=== PATIENT | female | born 1975 | race Caucasian/White ===

== ENCOUNTER 2018-12-04 17:37 | Observation (INO) ==
--- NOTE | 2018-12-04 17:54 | Emergency Department Note ---
Back Pain HPI - General Chief Complaint: Back Pain/Injury Stated Complaint: severe back pain after discogram Time Seen by Provider: 12/04/18 17:49 Source: patient Limitations: no limitations - History of Present Illness HPI Narrative: This patient had a discogram on with Dr. Fox. He gave her oxycodone but she is developed quite a bit of pain today in the low back region with a little bit of increased radicular symptoms. She is scheduled to have a back fusion by Dr. Yepez in January. No fever chills nausea or vomiting. - Related Data Allergies Allergy/AdvReac Type Severity Reaction Status Date / Time ciprofloxacin [From Cipro] Allergy Severe Difficulty Verified 12/04/18 17:40 Breathing Review of Systems All systems ED: reviewed and negative except as stated. Past Medical History - Past Medical History Medical history: Reports: no medical history - Social History smoking status: Never smoker Physical Exam Her back on inspection looks normal I do not see any swelling redness erythema cannot even find the puncture site. She has mild tenderness in the area. Limitations: no limitations General appearance: alert Head: atraumatic Neurological: Present: alert Psychiatric: Present: normal affect Skin: Present: warm, dry Course Vital Signs Temperature 97.3 F 12/04/18 17:38 Pulse Rate 81 12/04/18 17:38 Respiratory Rate 18 12/04/18 17:38 Blood Pressure 131/74 12/04/18 17:38 Pulse Oximetry (%) 96 12/04/18 17:38 Temperature 97.3 F 12/04/18 17:38 Pulse Rate 67 12/04/18 20:50 Respiratory Rate 15 12/04/18 20:50 Blood Pressure 118/80 12/04/18 20:31 Pulse Oximetry (%) 100 12/04/18 20:50 Back Pain/Injury - MDM Narrative Medical decision making narrative: This patient's pain is difficult to control and she will require admission for pain control. I did discuss the case with Dr. Key who is on-call for Dr. Fox and he felt that she probably had some inflammation from the discogram but it is too early for discitis. Patient be admitted by the hospitalist service. - Lab Data Lab results reviewed: Yes I reviewed the patient's lab results. Result diagrams: 12/04/18 18:04 12/04/18 18:04 Lab Results 12/04/18 12/04/18 Range/Units 18:04 18:04 WBC 13.4 H (4.5-11.0) K/mcL RBC 4.41 (4.00-5.20) M/mcL Hgb 13.3 (12.0-15.0) g/dL Hct 40.6 (36.0-48.0) % MCV 91.9 (80.0-100.0) fL MCH 30.1 (26.0-34.0) pg MCHC 32.8 (31.0-36.0) g/dL RDW 14.3 (11.5-14.5) % Plt Count 259 (140-440) K/mcL MPV 9.1 (7.4-10.4) fL Gran % 70.2 (38.0-78.0) % Lymph % (Auto) 22.4 (15.5-49.0) % Bucks % (Auto) 6.3 (1.0-12.0) % Eos % (Auto) 0.8 (0.0-7.0) % Baso % (Auto) 0.3 (0.0-2.0) % Gran # 9.4 H (1.8-8.0) K/mcL Lymph # (Auto) 3.0 (1.5-4.8) K/mcL Bucks # (Auto) 0.8 (0.1-0.9) K/mcL Eos # (Auto) 0.1 (0.0-0.7) K/mcL Baso # (Auto) 0 (0.0-0.3) K/mcL Sodium 141 (133-145) mmol/L Potassium 3.2 L (3.3-5.1) mmol/L Chloride 99 (96-108) mmol/L Carbon Dioxide 30 (22-30) mmol/L Anion Gap 12.0 (8-16) BUN 23 H (6-20) mg/dl Creatinine 0.8 (0.6-1.1) mg/dl GFR Calculation 90 Glucose 92 (70-105) mg/dL Calcium 9.5 (8.6-10.4) mg/dl Total Bilirubin < 0.2 (0.0-1.0) mg/dL AST 24 (0-37) U/l ALT 24 (0-40) U/l Alkaline Phosphatase 74 (39-117) U/L C-React Prot High Sens 1.3 (1.0-3.0) mg/L Total Protein 7.3 (5.9-8.4) gm/dL Albumin 4.4 (3.2-5.2) gm/dL Globulin 2.9 (2.2-3.7) gm/dL Albumin/Globulin Ratio 1.5 (1.0-2.3) Disposition Pt seen by PONDMAN/PA only: No Clinical Impression: Sciatica Disposition: Xfer As Outpt/Obs ([facility]) Condition: Good Referrals: Alexandria Perales [Primary Care Provider] - Time of Disposition: 20:52
[2018-12-04] MEDS: HYDROmorphone 2 MG/ML VIAL IV PRN ×3 (18:02→23:43)
[2018-12-04] MEDS ORDERED: HYDROmorphone 2 MG/ML VIAL IV ONE (18:11)
[2018-12-04] MEDS ORDERED: METHOCARBAMOL 1,000 MG/10 ML VIAL IV ONE (18:40)
[2018-12-04] MEDS ORDERED: KETOROLAC 30 MG/ML VIAL IV ONE (18:40)
[2018-12-04] MEDS ORDERED: ACETAMINOPHEN 1,000 MG/100 ML BOTTLE IV ONE (18:40)
[2018-12-04 18:56] LABS: Basophils # (Auto) 0 K/mcL (0.0-0.3); Basophils % (Auto) 0.3 % (0.0-2.0); Eosinophils # (Auto) 0.1 K/mcL (0.0-0.7); Eosinophils % (Auto) 0.8 % (0.0-7.0); Granulocytes % (Auto) 70.2 % (38.0-78.0); Lymphocytes % (Auto) 22.4 % (15.5-49.0); Mean Cell Volume 91.9 fL (80.0-100.0); Mean Corpuscular HGB Conc 32.8 g/dL (31.0-36.0); Monocytes # (Auto) 0.8 K/mcL (0.1-0.9); Monocytes % (Auto) 6.3 % (1.0-12.0); Platelet Count 259 K/mcL (140-440); RBC 4.41 M/mcL (4.00-5.20); Red Cell Distribution Width 14.3 % (11.5-14.5)
[2018-12-04 19:12] LABS: ALT/SGPT 24 U/l (0-40); Albumin 4.4 gm/dL (3.2-5.2); Albumin/Globulin Ratio 1.5 (1.0-2.3); Alkaline Phosphatase 74 U/L (39-117); Blood Urea Nitrogen 23 mg/dl (6-20)
[2018-12-04 19:28] LABS: CRP,High Sensitivity 1.3 mg/L (1.0-3.0)
[2018-12-04] MEDS ORDERED: 0.9 % SODIUM CHLORIDE 1,000 ML IV ONE (20:22)
[2018-12-04] MEDS ORDERED: diphenhydrAMINE 50 MG/ML VIAL IV ONE (20:24)
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
[2018-12-04] MEDS ORDERED: 0.9 % SODIUM CHLORIDE 1,000 ML IV SCH (21:55)
[2018-12-04] MEDS ORDERED: PROMETHAZINE 25 MG TABLET PO PRN (21:55)
[2018-12-04] MEDS ORDERED: IPRATROPIUM/ALBUTEROL 3 ML AMPUL.NEB NEB PRN (21:55)
[2018-12-04] MEDS ORDERED: ONDANSETRON 4 MG/2 ML VIAL IV PRN (21:55)
[2018-12-04] MEDS ORDERED: DEXAMETHASONE 10 MG/ML VIAL IV ONE (21:55)
[2018-12-04] MEDS ORDERED: ACETAMINOPHEN 325 MG TABLET PO PRN (21:55)
[2018-12-04] MEDS ORDERED: POTASSIUM CHLORIDE 20 MEQ TABLET PO PRN ×2 (21:55)
[2018-12-04] MEDS ORDERED: METOCLOPRAMIDE 10 MG/2 ML VIAL IV PRN (21:55)
[2018-12-04] MEDS ORDERED: MAGNESIUM SULFATE 2 GM/50 ML BAG IV PRN (21:55)
[2018-12-04] MEDS ORDERED: SENNOSIDES 1 TABLET PO PRN (21:55)
[2018-12-04] MEDS ORDERED: POTASSIUM CHLORIDE 20 MEQ TABLET PO ONE (21:55)
[2018-12-04] MEDS ORDERED: POLYETHYLENE GLYCOL 3350 17 GM PACKET PO PRN (21:55)
[2018-12-04] MEDS ORDERED: LACTULOSE 20 GM/30 ML ORAL.SOL PO PRN (21:55)
[2018-12-04] MEDS: DOCUSATE SODIUM 100 MG CAPSULE PO SCH (22:37)
[2018-12-04] MEDS: 0.9 % SODIUM CHLORIDE 10 ML SYRINGE IV SCH (22:38)
[2018-12-04] MEDS: oxyCODONE/APAP 5/325MG TABLET PO PRN (22:38)
[2018-12-04] MEDS: LIDOCAINE PATCH TOPICAL SCH (22:51)
[2018-12-05] MEDS: HYDROmorphone 2 MG/ML VIAL IV PRN ×9 (00:23→22:09)
[2018-12-05] MEDS: METHOCARBAMOL 1,000 MG/10 ML VIAL IV PRN ×2 (02:12→10:28)
[2018-12-05] MEDS: oxyCODONE/APAP 5/325MG TABLET PO PRN ×3 (03:22→11:14)
[2018-12-05] MEDS: 0.9 % SODIUM CHLORIDE 10 ML SYRINGE IV SCH ×3 (04:27→21:09)
[2018-12-05] MEDS: KETOROLAC 15 MG/ML VIAL IV PRN ×3 (04:31→18:14)
[2018-12-05 05:47] LABS: Basophils # (Auto) 0 K/mcL (0.0-0.3); Basophils % (Auto) 0.2 % (0.0-2.0); Eosinophils # (Auto) 0 K/mcL (0.0-0.7); Eosinophils % (Auto) 0.1 % (0.0-7.0); Granulocytes % (Auto) 86.9 % (38.0-78.0); Lymphocytes # (Auto) 1.1 K/mcL (1.5-4.8); Lymphocytes % (Auto) 11.1 % (15.5-49.0); Mean Cell Volume 92.4 fL (80.0-100.0); Mean Corpuscular HGB Conc 32.9 g/dL (31.0-36.0); Monocytes # (Auto) 0.2 K/mcL (0.1-0.9); Monocytes % (Auto) 1.7 % (1.0-12.0); Platelet Count 231 K/mcL (140-440); RBC 3.99 M/mcL (4.00-5.20); Red Cell Distribution Width 14.4 % (11.5-14.5)
[2018-12-05 05:55] LABS: ALT/SGPT 84 U/l (0-40); Albumin 3.8 gm/dL (3.2-5.2); Albumin/Globulin Ratio 1.5 (1.0-2.3); Alkaline Phosphatase 71 U/L (39-117); Bilirubin,Direct < 0.2 mg/dL (0.0-0.3); Blood Urea Nitrogen 17 mg/dl (6-20); Gamma Glutamyl Transpeptidase 72 U/L (5-36); Uric Acid 3.3 mg/dL (2.5-8.0)
[2018-12-05] MEDS ORDERED: diphenhydrAMINE 25 MG CAPSULE PO PRN (06:56)
--- NOTE | 2018-12-05 06:58 | Internal Med Progress Note ---
Medical - PN: Subj Patient information: Note initiated : 12/05/18 at 6:55 am Service Date, if different from initiated Date: [] Patient: Raz Obrien 43 y/o F admitted on 12/04/18 for severe back pain after discogram. Chief Complaint: [] Interval history: Ms. Obrien is a 43 year old F presents to the ED with intractable back pain. Patient has had back pain for some time and started seeing Dr. Fox and Dr. Yepez. Dr. Yepez plan on doing a surgery in January and needed a discogram prior. Dr. Valle performed a discogram on . Patient has had significant pain since then and has continued to worsen prompting her return to the ED as her home pain medications are given after the procedure have not been able to take away any of her pain. No fevers or chills or recent illnesses. Denies numbness tingling in legs, no bowel or bladder incontinence. Her pain is sharp shooting pain that starts from her back and radiates down to the back of her right leg. Her pain was unable to be controlled in the ED. Dr. Gambino was contacted who will consult on the case. 12/05 States she was able to sleep for about an hour. States pain is 7 out of 10, however appears more comfortable than yesterday. No other complaints. Dr. Ness for consultation today. Review of Systems: denies headache/fever/chills/nausea/vomiting/chest or abdominal pain/cough/dyspnea/diarrhea. Otherwise see above. - Constitutional Vitals: Vital Signs Temp Pulse Resp BP Pulse Ox 98.5 F 66 12 111/68 94 12/05/18 04:27 12/05/18 04:27 12/05/18 04:27 12/05/18 04:27 12/05/18 04:27 Period Temp Pulse Resp BP Sys/Escoto Pulse Ox Last 24 Hr 97.3 F-98.5 F 33-85 10-20 99-139/62-96 83-100 Intake and Output 12/04/18 12/05/18 12/05/18 21:59 05:59 13:59 Intake Total 1100 300 Balance 1100 300 Weight 80.739 kg 80.739 kg Intake & Output: Intake & Output 12/04/18 12/05/18 12/05/18 21:59 05:59 13:59 Intake Total 1100 300 Balance 1100 300 Weight 80.739 kg 80.739 kg Intake: IV 1100 Sodium Chloride 0.9% 1,000 ml @ 1000 Wide Open IV BOLUS ONE Rx#: [id number] Oral 300 Other: # Voids 1 Exam: General: Alert, Awake, no acute distress Eyes/N/T: EOMI, , Head/Neck: neck supple, CV: RRR, No murmurs, Pulm: Clear b/l, no wheezing/rhonchi/rales Abd: soft, nontender, +BS x4 Ext: no clubbing/cyanosis/edema Neuro: Alert, no focal deficits, moves all extremities, Skin: warm/dry Medical - PN: Obj Da - Labs CBC & Chem 7: 12/05/18 04:13 12/05/18 04:13 Labs: Abnormal Lab Results 12/05/18 12/05/18 12/04/18 04:13 04:13 18:04 WBC RBC 3.99 L Gran % 86.9 H Lymph % (Auto) 11.1 L Gran # 8.4 H Lymph # (Auto) 1.1 L Potassium 3.2 L BUN 23 H Glucose 136 H GGT 72 H AST 96 H ALT 84 H 12/04/18 18:04 WBC 13.4 H RBC Gran % Lymph % (Auto) Gran # 9.4 H Lymph # (Auto) Potassium BUN Glucose GGT AST ALT Meds: Medications Acetaminophen (Tylenol) 650 mg PO Q6HP PRN PRN Reason: PAIN/FEVER > 101 Albuterol/Ipratropium (Duoneb) 3 ml NEB Q4HP PRN PRN Reason: Shortness Of Breath Diphenhydramine HCl (Benadryl) 25 - 50 mg IV Q4HP PRN PRN Reason: Allergic Symptoms Docusate Sodium (Colace) 100 mg PO BID FILEMON Last Admin: 12/04/18 22:37 Dose: 100 mg Documented by: Hydromorphone HCl (Dilaudid) 0 mg IV Q2HP PRN PRN Reason: Pain Last Admin: 12/05/18 05:57 Dose: 1.5 mg Documented by: Magnesium Sulfate (Magnesium Sulfate) 2 gm in 50 mls @ 50 mls/hr IV UD PRN PRN Reason: Magnesium </= 1.6 Sodium Chloride (Sodium Chloride 0.9%) 1,000 mls @ 75 mls/hr IV .[id number] [facility] Stop: 12/05/18 11:14 Last Admin: 12/04/18 22:39 Dose: 75 mls/hr Documented by: Ketorolac Tromethamine (Toradol) 15 mg IV Q6HP PRN PRN Reason: Pain Stop: 12/06/18 21:03 Last Admin: 12/05/18 04:31 Dose: 15 mg Documented by: Lactulose (Cephulac) 10 gm PO DAILYP PRN PRN Reason: Constipation Lidocaine (Lidoderm) 1 patch TOPICAL DAILY@1000 FILEMON Last Admin: 12/04/18 22:51 Dose: 1 patch Documented by: Methocarbamol (Robaxin) 750 mg IV Q6HP PRN PRN Reason: Muscle Spasm Last Admin: 12/05/18 02:12 Dose: 750 mg Documented by: Metoclopramide HCl (Reglan) 10 mg IV Q6HP PRN PRN Reason: Nausea And Vomiting Ondansetron HCl (Zofran) 4 mg IV Q4HP PRN PRN Reason: Nausea And Vomiting Oxycodone/Acetaminophen (Percocet 5-325 Mg) 1 tab PO Q4HP PRN PRN Reason: PAIN LEVEL 3-6 Last Admin: 12/05/18 03:22 Dose: 1 tab Documented by: Polyethylene Glycol (Miralax) 17 gm PO DAILYP PRN PRN Reason: Constipation Potassium Chloride (Kdur) 40 meq PO UD PRN PRN Reason: Potssium is 3-3.5 Potassium Chloride (Kdur) 40 meq PO UD PRN PRN Reason: Potassium < 3 Promethazine HCl (Phenergan) 0 mg PO Q6HP PRN PRN Reason: Nausea And Vomiting Senna (Senokot) 2 tab PO HSP PRN PRN Reason: Constipation Sodium Chloride (Saline Flush) 10 ml IV Q8 [facility] Last Admin: 12/05/18 04:27 Dose: Not Given Documented by: Medical - PN: A/P - Time Spent With Patient Total time spent is greater than 50% in coordination of care (as documented) at patient's floor/unit and/or counseling patient: - Narrative A/P Narrative: A: *Intractable back pain: Status post discogram on *Mild leukocytosis: Likely reactive from procedure. Afebrile and CRP low -resolved w/o abx *Volume depletion: resolved *Hypokalemia: resolved *Depression: * P: -Dr. Ness consulting for pain mgmt -currently on IV Dilaudid, Robaxin, Toradol, p.o. Percocet -continuous pulse ox -prn potassium supp - -ppx: SCD Medical - PN: Qual - VTE Deep Vein Thrombosis/Pulmonary Embolism Present on Admission: No
[2018-12-05] MEDS: diphenhydrAMINE 50 MG/ML VIAL IV PRN ×2 (07:10→13:28)
--- NOTE | 2018-12-05 07:41 | Consultation ---
DATE OF CONSULTATION: 12/04/2018 HISTORY OF PRESENT ILLNESS: I was asked by the emergency room to consult on pain management for this patient. The patient apparently presented to the ER last evening with intractable low back pain. The patient's history is that of low back pain for the last 2 years that was intermittent with pain being significantly increased upon activity. The patient was being seen by Dr. Jose J Fox at [facility] here at [facility]. The patient had utilized transforaminal ESIs at L5-S1 x2, one on 09/13/2018 and the second one on 10/11/2018, and these gave her approximately 3 weeks of benefit and then the pain would just return. The patient underwent a discogram on 12/01/2018 and was found to have grade V annular tears at the L4-L5 level and the L5-S1 level. The patient was injected with lidocaine and 20 mg Kenalog in each disc following the procedure and was told that she would have pain and was given pain medication for it. She was tolerating things until Wednesday when she states the pain became significantly worse at that time. This caused her then to present to the ER yesterday and after numerous attempts to get her pain under control with what sounds like Toradol as well as other IV analgesics, they were unable to get her pain under control. The patient initially on presenting to the emergency room had a white blood cell count of 13.4. Since that time, it was repeated at 9.6, which is within normal limits. Her CRP, however, was 1.3, which is not remarkable and certainly her last WBC count was not remarkable. The patient was admitted for observation until they felt as if they could get her pain under better control. The patient's home medication was citalopram, estradiol, methocarbamol 750 mg p.o. q.6h., Progesterone micronized 100 mg p.o. The patient presently while in house in regards to her pain medication, is requiring approximately 5 mg of IV Dilaudid q.8h., initially was given 0.5 about every 30 minutes and then 1 every 2 hours and now she is at 1.5 q. 2 hours. The nurse stated again her need was approximately 5 mg IV Dilaudid every 8 hours. She is also getting Toradol 15 mg q.6h. and Robaxin 750 IV q.6h. with also oxycodone 5/325 mg as needed. The patient was also given 4 mg of dexamethasone and has a lidocaine patch on her back. ALLERGIES: CIPRO. PAST MEDICAL HISTORY: Significant for mild depression. PAST SURGICAL HISTORY: Significant for appendectomy, cholecystectomy and hysterectomy. REVIEW OF SYSTEMS: Unremarkable. FAMILY HISTORY: Negative for chronic problem. 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 Education: High school/GED. Marital status: . Disability/Worker's comp: No. Tobacco: No. Alcohol: 2 to 3 drinks a month. Illegal drugs: No. PHYSICAL EXAMINATION: GENERAL: The patient is awake and alert. She appears to be lying flat in her bed and does not appear to be in any significant pain when I am talking to her, but certainly upon movement of her legs this does cause some pain. NECK: Supple. No anterior, posterior lymphadenopathy. HEART: Regular rate and no ectopy. LUNGS: Clear to auscultation. No rales, rhonchi or wheezing. ABDOMEN: Soft, nontender to palpation. No organomegaly, no mass, no guarding or rigidity. BACK: Tenderness over the site of injection but no sign or symptoms of infection. Straight leg raise is markedly positive on the right at approximately 15 to 20 degrees. Left just caused back pain. The patient's main complaint is that of back pain going into the right buttocks and down the posterior aspect of her right upper leg, not going to the knee. Ravi's test was unremarkable for SI joint pain bilaterally. There is no clonus noted bilaterally. EXTREMITIES: No significant pain upon extremes of internal and external rotation or flexion of the hips bilaterally. NEUROLOGIC: Quadriceps hamstrings, dorsiflexion and plantar flexion, ankle eversion and inversion strengths are equal bilaterally. Patellar and Achilles deep tendon reflexes are equal and hyperreflexic. No sensory deficits noted in the lower extremities bilaterally. INTEGUMENT: Unremarkable. IMPRESSION: 1. Significant intractable low back pain status post discogram at L4-5 and L5-S1, which noted grade V annular tears and were quite positive and painful. 2. Lumbar radiculitis, likely involving S1 based upon description of her pain which is not new, but certainly is exacerbated at this time. 3. History of mild depression. 4. History of chronic pain being treated with opioids for nonmalignant pain. PLAN: Certainly the white blood cell count of 13.4, initially was of some concern, but since it was repeated at 9.6 certainly I do not feel likely there is an infection occurring especially secondary to the CRP being 1.3. We will go ahead and repeat the CRP. We will also get a sed rate to see what that shows. The UA was not done in the ER and I am also requesting that a urinalysis be obtained. The patient apparently was scheduled to have some type of a procedure done by Dr. Yepez in the coming months. The question is whether or not we need to potentially proceed down the road of getting an MRI with and without contrast. My concern is that there may be some remarkable finding secondary to the discogram done just with the dye that was injected and the procedure that was done may make it appear to be remarkable when at this point I am not convinced this is a diskitis as I believe this is likely too early. Also, I will expect the CRP to be elevated which it is not. Therefore, my initial thought is to consider doing a bilateral transforaminal epidural steroid injection at the L5-S1 level with enough volume to cover both the L5-S1 and L4-5 levels and see if this would calm things down. Also, patient is not on any neuropathic medication and if she has not tried gabapentin in the past, we will allow or 300 mg t.i.d. If she has tried this, we will trail her with 75 mg of Lyrica twice daily. At some point, we would like to convert her over from IV opioids to oral or transdermal. We will likely see how she does with the epidural steroid injection and determine her need at that point. The patient will be scheduled for the transforaminal epidural steroid injection later today and again based upon her response will determine further recommendations. TAMI:noemi Job ID: [id number] Doc ID: [id number] Declan Ness DO
[2018-12-05] MEDS: GABAPENTIN 300 MG CAPSULE PO SCH ×3 (10:29→21:09)
[2018-12-05] MEDS: DOCUSATE SODIUM 100 MG CAPSULE PO SCH ×2 (10:29→21:09)
[2018-12-05] MEDS: LIDOCAINE PATCH TOPICAL SCH ×2 (10:29→20:22)
[2018-12-05 11:27] LABS: Appearance,Urine CLEAR; Bilirubin,Urine NEG (NEG); Color,Urine STRAW; Glucose,Urine (UA) NEGATIVE (NEG); Leukocyte Esterase,Urine NEG /uL (NEG); Protein,Urine NEG (NEG); Specific Gravity,Urine 1.011 (1.000-1.035); Urine Blood NEG mg/dL (<0.03); Urobilinogen,Urine NEG (NEG)
--- NOTE | 2018-12-05 11:36 | Discharge Summary ---
Medical - DS: Prov Patient information: Note initiated : 12/05/18 at 11:34 am Service Date, if different from initiated Date: [] Patient: Raz Obrien 43 y/o F admitted on 12/04/18 for severe back pain after discogram. Chief Complaint: [] Date of admission: 12/04/18 21:54 Discharge date: 12/06/18 Primary care physician: Alexandria Perales Consults: 12/04/18 Consult to Physician [CONS] Stat Comment: Consulting Provider: Job Stevenson Reason For Exam: Physician to Consult 12/04/18 21:55 Consult to Physician [CONS] Routine Comment: Consulting Provider: Declan Ness Reason For Exam: Physician to Consult Medical - DS: Meds - Discharge Medications Prescriptions: fentaNYL [Duragesic] 50 mcg TOPICAL Q72H #7 patch Methocarbamol [Robaxin-750] 500 mg PO QIDP PRN #40 tab PRN Reason: Pain oxyCODONE/APAP [Percocet 10-325Mg] 0.5 - 1 tab PO Q4-6HP PRN #20 tab PRN Reason: Pain Level 3-6 Active and Home Medications: Home Medications Citalopram [Celexa] 20 mg PO HS 12/04/18 [History Confirmed 12/04/18 Last Taken Unknown] Estradiol [Estrace] 0.5 - 1 mg PO HS 12/04/18 [History Confirmed 12/04/18 Last Taken Unknown] Methocarbamol [Robaxin-750] 750 mg PO Q6HP PRN 12/04/18 [History Confirmed 12/04/18 Last Taken Unknown] Progesterone,Micronized [Progesterone] 100 mg PO 12/04/18 [History Last Taken Unknown] Home Medications Citalopram [Celexa] 20 mg PO HS 12/04/18 [History Confirmed 12/04/18 Last Taken Unknown] Estradiol [Estrace] 0.5 - 1 mg PO HS 12/04/18 [History Confirmed 12/04/18 Last Taken Unknown] Progesterone,Micronized [Progesterone] 100 mg PO HS 12/04/18 [History Confirmed 12/05/18 Last Taken Unknown] Methocarbamol [Robaxin-750] 500 mg PO QIDP PRN #40 tab 12/06/18 [Rx Last Taken Unknown] fentaNYL [Duragesic] 50 mcg TOPICAL Q72H #7 patch 12/06/18 [Rx Last Taken Unknown] oxyCODONE/APAP [Percocet 10-325Mg] 0.5 - 1 tab PO Q4-6HP PRN #20 tab 12/06/18 [Rx Last Taken Unknown] Medical - DS: Hosp Hospital course: Mr. Obrien is a 43 year old F Ms. Obrien is a 43 year old F presents to the ED with intractable back pain. Patient has had back pain for some time and started seeing Dr. Fox and Dr. Yepez. Dr. Yepez plan on doing a surgery in January and needed a discogram prior. Dr. Valle performed a discogram on . Patient has had significant pain since then and has continued to worsen prompting her return to the ED as her home pain medications are given after the procedure have not been able to take away any of her pain. No fevers or chills or recent illnesses. Denies numbness tingling in legs, no bowel or bladder incontinence. Her pain is sharp shooting pain that starts from her back and radiates down to the back of her right leg. Her pain was unable to be controlled in the ED. Dr. Gambino was contacted who will consult on the case. 12/05 States she was able to sleep for about an hour. States pain is 7 out of 10, however appears more comfortable than yesterday. No other complaints. Dr. Ness for consultation today. Spinal injection today by Dr. Gambino. 12/06 Pain present but overall improved, was able to ambulate to the bathroom. Received steroid epidural injection yesterday. No new complaints Discharge diagnosis: Intractable back pain status post procedure hypokalemia volume depletion - Time Spent with Patient Total time spent providing and/or coordinating discharge services: Greater than 30 minutes Medical - DS: Exam - Constitutional Vitals: Vital Signs Temp Pulse Pulse Resp BP BP Pulse Ox 12/05/18 08:00 98.0 F 50 L 16 110/73 92 12/05/18 04:27 98.5 F 66 12 111/68 94 12/05/18 02:10 64 14 109/96 97 12/05/18 00:17 99/62 12/04/18 23:28 97.8 F 51 L 14 103/64 96 12/04/18 21:55 98.1 F 61 62 16 124/64 102/65 94 12/04/18 21:53 61 13 96 12/04/18 21:45 63 10 L 92 12/04/18 21:31 33 L 18 124/64 83 L 12/04/18 21:29 79 10 L 139/78 95 12/04/18 21:11 71 10 L 100 12/04/18 21:01 66 13 119/74 100 12/04/18 20:58 70 15 100 12/04/18 20:52 64 18 100 12/04/18 20:50 67 15 100 12/04/18 20:43 63 20 100 12/04/18 20:31 71 14 118/80 100 12/04/18 20:25 85 19 100 12/04/18 20:21 73 17 100 12/04/18 20:07 83 100 12/04/18 20:03 80 100 12/04/18 20:01 77 126/81 100 12/04/18 19:31 64 120/77 100 12/04/18 19:26 64 99 12/04/18 19:25 62 100 12/04/18 19:01 66 122/71 91 12/04/18 18:31 77 131/81 12/04/18 18:11 61 134/79 94 12/04/18 17:38 97.3 F 81 18 131/74 96 Intake and Output 12/04/18 12/05/18 12/05/18 21:59 05:59 13:59 Intake Total 1100 300 Output Total 450 Balance 1100 300 -450 Intake: IV 1100 Sodium Chloride 0.9% 1,000 ml @ 1000 Wide Open IV BOLUS ONE Rx#: [id number] Oral 300 Output: Void Amount 450 Other: # Voids 1 1 Weight 80.739 kg 80.739 kg Medical - DS: Data Labs on day of discharge: Labs from last 24 hours 12/05/18 12/05/18 12/05/18 10:47 04:13 04:13 WBC RBC Hgb Hct MCV MCH MCHC RDW Plt Count MPV Gran % Lymph % (Auto) [place] % (Auto) Eos % (Auto) Baso % (Auto) Gran # Lymph # (Auto) [place] # (Auto) Eos # (Auto) Baso # (Auto) ESR 17 Sodium Potassium Chloride Carbon Dioxide Anion Gap BUN Creatinine GFR Calculation Glucose Uric Acid Calcium Phosphorus Magnesium Total Bilirubin Direct Bilirubin GGT AST ALT Alkaline Phosphatase Lactate Dehydrogenase C-React Prot High Sens 1.8 Total Protein Albumin Globulin Albumin/Globulin Ratio Triglycerides Urine Color Straw Urine Appearance Clear Urine pH 6.0 Ur Specific Murray 1.011 Urine Protein Neg Urine Glucose (UA) Negative Urine Ketones Neg Urine Occult Blood Neg Urine Nitrate Neg Urine Bilirubin Neg Urine Urobilinogen Neg Ur Leukocyte Esterase Neg Ur Culture Indicated? No 12/05/18 12/05/18 12/04/18 04:13 04:13 18:04 WBC 9.6 RBC 3.99 L Hgb 12.1 Hct 36.9 MCV 92.4 MCH 30.4 MCHC 32.9 RDW 14.4 Plt Count 231 MPV 9.1 Gran % 86.9 H Lymph % (Auto) 11.1 L [place] % (Auto) 1.7 Eos % (Auto) 0.1 Baso % (Auto) 0.2 Gran # 8.4 H Lymph # (Auto) 1.1 L [place] # (Auto) 0.2 Eos # (Auto) 0 Baso # (Auto) 0 ESR Sodium 139 141 Potassium 4.1 3.2 L Chloride 103 99 Carbon Dioxide 26 30 Anion Gap 10.0 12.0 BUN 17 23 H Creatinine 0.6 0.8 GFR Calculation 112 90 Glucose 136 H 92 Uric Acid 3.3 Calcium 8.9 9.5 Phosphorus 3.8 Magnesium 2.0 Total Bilirubin 0.3 < 0.2 Direct Bilirubin < 0.2 GGT 72 H AST 96 H 24 ALT 84 H 24 Alkaline Phosphatase 71 74 Lactate Dehydrogenase 212 C-React Prot High Sens 1.3 Total Protein 6.3 7.3 Albumin 3.8 4.4 Globulin 2.5 2.9 Albumin/Globulin Ratio 1.5 1.5 Triglycerides 52 Urine Color Urine Appearance Urine pH Ur Specific Murray Urine Protein Urine Glucose (UA) Urine Ketones Urine Occult Blood Urine Nitrate Urine Bilirubin Urine Urobilinogen Ur Leukocyte Esterase Ur Culture Indicated? 12/04/18 18:04 WBC 13.4 H RBC 4.41 Hgb 13.3 Hct 40.6 MCV 91.9 MCH 30.1 MCHC 32.8 RDW 14.3 Plt Count 259 MPV 9.1 Gran % 70.2 Lymph % (Auto) 22.4 [place] % (Auto) 6.3 Eos % (Auto) 0.8 Baso % (Auto) 0.3 Gran # 9.4 H Lymph # (Auto) 3.0 [place] # (Auto) 0.8 Eos # (Auto) 0.1 Baso # (Auto) 0 ESR Sodium Potassium Chloride Carbon Dioxide Anion Gap BUN Creatinine GFR Calculation Glucose Uric Acid Calcium Phosphorus Magnesium Total Bilirubin Direct Bilirubin GGT AST ALT Alkaline Phosphatase Lactate Dehydrogenase C-React Prot High Sens Total Protein Albumin Globulin Albumin/Globulin Ratio Triglycerides Urine Color Urine Appearance Urine pH Ur Specific Murray Urine Protein Urine Glucose (UA) Urine Ketones Urine Occult Blood Urine Nitrate Urine Bilirubin Urine Urobilinogen Ur Leukocyte Esterase Ur Culture Indicated? Medical - DS: A/P - Patient/Caregiver Discharge Instructions Activity: increase activity as tolerated Diet: Regular Diet - Follow up Plan Follow up with: Alexandria Perales [Primary Care Provider] - Declan Ness DO [Physician] - Disposition: Home, Self-Care Prognosis: Good Rehab Potential: Fair Medical - DS: Qual - VTE Deep Vein Thrombosis/Pulmonary Embolism Present on Admission: No
[2018-12-05] MEDS ORDERED: MIDAZOLAM 2 MG/2 ML VIAL ONE (16:50)
[2018-12-05] MEDS ORDERED: BUPIVACAINE 0.25% 50 ML VIAL IJ ONE (16:50)
[2018-12-05] MEDS ORDERED: PROPOFOL 20 ML IV ONE (16:50)
[2018-12-05] MEDS ORDERED: TRIAMCINOLONE ACETONIDE 40 MG/ML VIAL INTRAARTIC ONE (16:50)
[2018-12-05] MEDS ORDERED: BUPIVACAINE PF 0.25% 10 ML VIAL IJ ONE (16:55)
[2018-12-05] MEDS ORDERED: MIDAZOLAM 2 MG/2 ML VIAL IV ONE (16:56)
[2018-12-05] MEDS ORDERED: PROPOFOL 200 MG/20 ML VIAL IV ONE (16:56)
[2018-12-05] MEDS ORDERED: fentaNYL 50 MCG PATCH TOPICAL SCH (18:00)
[2018-12-05] MEDS: oxyCODONE/APAP 10/325MG TABLET PO PRN (18:32)
[2018-12-05] MEDS: METHOCARBAMOL 500 MG TABLET PO SCH (21:09)
[2018-12-06] MEDS: oxyCODONE/APAP 10/325MG TABLET PO PRN ×5 (00:03→16:59)
[2018-12-06] MEDS: KETOROLAC 15 MG/ML VIAL IV PRN ×4 (00:04→19:03)
[2018-12-06] MEDS: HYDROmorphone 2 MG/ML VIAL IV PRN ×4 (02:26→18:35)
[2018-12-06] MEDS: 0.9 % SODIUM CHLORIDE 10 ML SYRINGE IV SCH ×2 (05:51→14:04)
--- NOTE | 2018-12-06 07:07 | Internal Med Progress Note ---
Medical - PN: Subj Patient information: Note initiated : 12/06/18 at 7:06 am Service Date, if different from initiated Date: [] Patient: Raz Obrien 43 y/o F admitted on 12/04/18 for severe back pain after discogram. Chief Complaint: [] Interval history: Ms. Obrien is a 43 year old F presents to the ED with intractable back pain. Patient has had back pain for some time and started seeing Dr. Fox and Dr. Yepez. Dr. Yepez plan on doing a surgery in January and needed a discogram prior. Dr. Valle performed a discogram on . Patient has had significant pain since then and has continued to worsen prompting her return to the ED as her home pain medications are given after the procedure have not been able to take away any of her pain. No fevers or chills or recent illnesses. Denies numbness tingling in legs, no bowel or bladder incontinence. Her pain is sharp shooting pain that starts from her back and radiates down to the back of her right leg. Her pain was unable to be controlled in the ED. Dr. Gambino was contacted who will consult on the case. 12/05 States she was able to sleep for about an hour. States pain is 7 out of 10, however appears more comfortable than yesterday. No other complaints. Dr. Ness for consultation today. 12/06 Pain present but overall improved, was able to ambulate to the bathroom. Received steroid epidural injection yesterday. No new complaints Review of Systems: denies headache/fever/chills/nausea/vomiting/chest or abdominal pain/cough/dyspnea/diarrhea. Otherwise see above. - Constitutional Vitals: Vital Signs Temp Pulse Resp BP Pulse Ox 98.6 F 50 L 14 107/69 93 12/06/18 04:23 12/06/18 04:23 12/06/18 04:23 12/06/18 04:23 12/06/18 04:23 Period Temp Pulse Resp BP Sys/Escoto Pulse Ox Last 24 Hr 97.1 F-98.6 F 50-68 14-18 101-124/62-78 92-100 Intake and Output 12/05/18 12/06/18 12/06/18 21:59 05:59 13:59 Intake Total 1250 240 Output Total 650 Balance 600 240 Weight 82.554 kg Intake & Output: Intake & Output 12/05/18 12/06/18 12/06/18 21:59 05:59 13:59 Intake Total 1250 240 Output Total 650 Balance 600 240 Weight 82.554 kg Intake: Oral 1250 240 Output: Void Amount 650 Exam: General: Alert, Awake, no acute distress Eyes/N/T: EOMI, , Head/Neck: neck supple, CV: RRR, No murmurs, Pulm: Clear b/l, no wheezing/rhonchi/rales Abd: soft, nontender, +BS x4 Ext: no clubbing/cyanosis/edema Neuro: Alert, no focal deficits, moves all extremities, Skin: warm/dry Medical - PN: Obj Da - Labs CBC & Chem 7: 12/05/18 04:13 12/05/18 04:13 Labs: Abnormal Lab Results 12/05/18 12/05/18 12/04/18 04:13 04:13 18:04 WBC RBC 3.99 L Gran % 86.9 H Lymph % (Auto) 11.1 L Gran # 8.4 H Lymph # (Auto) 1.1 L Potassium 3.2 L BUN 23 H Glucose 136 H GGT 72 H AST 96 H ALT 84 H 12/04/18 18:04 WBC 13.4 H RBC Gran % Lymph % (Auto) Gran # 9.4 H Lymph # (Auto) Potassium BUN Glucose GGT AST ALT Meds: Medications Acetaminophen (Tylenol) 650 mg PO Q6HP PRN PRN Reason: PAIN/FEVER > 101 Albuterol/Ipratropium (Duoneb) 3 ml NEB Q4HP PRN PRN Reason: Shortness Of Breath Diphenhydramine HCl (Benadryl) 25 - 50 mg IV Q4HP PRN PRN Reason: Allergic Symptoms Last Admin: 12/05/18 13:28 Dose: 25 mg Documented by: Diphenhydramine HCl (Benadryl) 25 mg PO Q4-6HP PRN PRN Reason: Allergic Symptoms Last Admin: 12/06/18 04:27 Dose: 25 mg Documented by: Docusate Sodium (Colace) 100 mg PO BID [facility] Last Admin: 12/05/18 21:09 Dose: 100 mg Documented by: Fentanyl (Duragesic) 50 mcg TOPICAL Q72H [facility] Last Admin: 12/05/18 18:14 Dose: 50 mcg Documented by: Gabapentin (Neurontin) 300 mg PO TID [facility] Last Admin: 12/05/18 21:09 Dose: 300 mg Documented by: Hydromorphone HCl (Dilaudid) 0.5 mg IV Q2HP PRN PRN Reason: Pain Last Admin: 12/06/18 02:26 Dose: 0.5 mg Documented by: Magnesium Sulfate (Magnesium Sulfate) 2 gm in 50 mls @ 50 mls/hr IV UD PRN PRN Reason: Magnesium </= 1.6 Ketorolac Tromethamine (Toradol) 15 mg IV Q6HP PRN PRN Reason: Pain Stop: 12/06/18 21:03 Last Admin: 12/06/18 05:52 Dose: 15 mg Documented by: Lactulose (Cephulac) 10 gm PO DAILYP PRN PRN Reason: Constipation Lidocaine (Lidoderm) 1 patch TOPICAL DAILY@1000 [facility] Last Admin: 12/05/18 20:22 Dose: Not Given Documented by: Lidocaine (Lidoderm) 0 patch TOPICAL DAILY@2200 [facility] Methocarbamol (Robaxin) 500 mg PO QID [facility] Last Admin: 12/05/18 21:09 Dose: 500 mg Documented by: Metoclopramide HCl (Reglan) 10 mg IV Q6HP PRN PRN Reason: Nausea And Vomiting Ondansetron HCl (Zofran) 4 mg IV Q4HP PRN PRN Reason: Nausea And Vomiting Oxycodone/Acetaminophen (Percocet 10-325mg) 0.5 - 1 tab PO Q4-6HP PRN PRN Reason: PAIN LEVEL 3-6 Last Admin: 12/06/18 04:24 Dose: 1 tab Documented by: Polyethylene Glycol (Miralax) 17 gm PO DAILYP PRN PRN Reason: Constipation Potassium Chloride (Kdur) 40 meq PO UD PRN PRN Reason: Potssium is 3-3.5 Potassium Chloride (Kdur) 40 meq PO UD PRN PRN Reason: Potassium < 3 Promethazine HCl (Phenergan) 0 mg PO Q6HP PRN PRN Reason: Nausea And Vomiting Senna (Senokot) 2 tab PO HSP PRN PRN Reason: Constipation Sodium Chloride (Saline Flush) 10 ml IV Q8 [facility] Last Admin: 12/06/18 05:51 Dose: 10 ml Documented by: Medical - PN: A/P - Time Spent With Patient Total time spent is greater than 50% in coordination of care (as documented) at patient's floor/unit and/or counseling patient: - Narrative A/P Narrative: A: *Intractable back pain: Status post discogram on . now s/p epidural pain injection (12/05) -improving *Mild leukocytosis: Likely reactive from procedure. Afebrile and CRP low -resolved w/o abx *Volume depletion: resolved *Hypokalemia: resolved *Depression: * P: -Dr. Ness consulting for pain mgmt -currently on IV Dilaudid, Robaxin, Toradol, p.o. Percocet -Discharge pain medications per pain management -continuous pulse ox -prn potassium supp - -ppx: [facility] Medical - PN: Qual - VTE Deep Vein Thrombosis/Pulmonary Embolism Present on Admission: No
--- NOTE | 2018-12-06 07:09 | Operative Note ---
DATE OF OPERATION: 12/04/2018 PROCEDURE: Bilateral transforaminal SAUMYA at the L5-S1 level. PREPROCEDURE DIAGNOSIS: Axial low back pain with lumbar radiculopathy, right side worse than left, posterior leg involved likely L5-S1 dermatomal pattern. The patient is status post discogram done last . POSTOPERATIVE DIAGNOSIS: Axial low back pain with lumbar radiculopathy, right side worse than left, posterior leg involved likely L5-S1 dermatomal pattern. The patient is status post discogram done last . REASON FOR PROCEDURE: Based upon physical evaluation and history, we deemed it appropriate to proceed with today's injection. The patient had undergone L5-S1 transforaminal ESIs in the pain clinic and had benefit with these for approximately 3 weeks due to her having the same type of pain she was having previously, only more severe secondary to the discogram. I think it would be appropriate to proceed with today's injection. The patient's indices showed no sign or symptoms of infection at this time with a sed rate and CRP being within normal limits and her most recent white blood cell count within normal limits. Also, her UA was unremarkable. PROCEDURE IN DETAIL: After obtaining informed consent, the patient was taken to the GI lab and placed in a prone position. The patient's back was sterilely prepped and draped and the L5-S1 interspace was identified and right oblique provided a Bhanu dog appearance, just at the nape of the neck of Scottie dog a skin wheal was made with 1% lidocaine. A 22-gauge 5-inch needle was then advanced through the skin wheal along parallel axis fluoroscopic beam to the posterior aspect of the epidural space, contacting the posterior aspect of the neural foramen. This was also done on the contralateral left side. Omnipaque 300 was then injected showing good Omnipaque spread into the epidural space. Following heme negative aspiration and negative paresthesias, a total of 1 mL of 0.25% bupivacaine with 40 mg of Kenalog were injected on each side. The needle and ____ were flushed and the needles were removed without difficulty. The patient was taken back to her room and monitored an appropriate amount of time. We will be having PT start working with her tomorrow. Also, I will be switching her from her IV methocarbamol to Robaxin 500 mg 1 p.o. q.i.d. We will be putting Duragesic 50 mcg patch on q.72h. We will apply 10/325 mg oxycodone 1/2 to 1 p.o. q.4-6h. We will allow 0.5 mg of IV Dilaudid q.2h. until the Duragesic has taken effect. We may need to go up on the Duragesic but based upon my calculations were giving about half the dose of the IV Dilaudid that she is getting, hoping that the epidural will provide benefit as well. As previously stated, there were no signs or symptoms of infection based upon her indices of normal sed rate, normal CRP and normal WBC. If the patient continues to have difficulty, may want to consider getting an MRI of her lumbar spine with and without contrast. My hope is that we can work with physical therapy and convert patient to oral medication and/or transdermal and the patient will be able to get out of the hospital. GDH:noemi Job ID: [id number] Doc ID: [id number] Declan Ness DO
[2018-12-06] MEDS ORDERED: CITALOPRAM 20 MG TABLET PO SCH (09:00)
[2018-12-06] MEDS: DOCUSATE SODIUM 100 MG CAPSULE PO SCH (09:00)
[2018-12-06] MEDS ORDERED: ESTRADIOL 1 MG TABLET PO SCH (09:00)
[2018-12-06] MEDS: diphenhydrAMINE 50 MG/ML VIAL IV PRN ×2 (09:01→17:07)
[2018-12-06] MEDS: METHOCARBAMOL 500 MG TABLET PO SCH ×3 (09:01→16:58)
[2018-12-06] MEDS: GABAPENTIN 300 MG CAPSULE PO SCH ×2 (09:01→15:42)
[2018-12-06] MEDS: LIDOCAINE PATCH TOPICAL SCH (11:41)
--- NOTE | 2018-12-06 16:09 | Progress Note ---
DATE OF VISIT 12/06/2018 SUBJECTIVE: The patient is awake and alert after I awakened her from sleeping. The patient does not appear to be overly sedated and is quite appropriate while talking to her. I discussed with her that I had spoken to Dr. Yepez about a Dr. Awais Covington in [place] who apparently Dr. Yepez would like to refer the patient for the possibility of a two-level fusion at L4-L5 and L5-S1. Dr. Yepez stated that she had been denied a single level fusion and wanted to see if Dr. Covington would have a better chance of getting this approved. I shared that information with the patient, and also told her if she needed to talk to somebody further, she should call over to [facility] and potentially make an appointment with Dr. Yepez to discuss it further, but at this point he believes that is her best option. Overall, her pain is moderately controlled. I talked to her nurse, and she stated that the pain did get up to a 7/10, but with the oxycodone she usually is able to bring it down to a 5/10 or lower. The patient has not been up and ambulating. I had written an order for patient to be seen by physical therapist this morning and this afternoon. The patient stated that the physical therapist showed up this morning and stated to her that there really was not anything he could do and then he left. I went and talked to [facility] to this PT's colleague because patient did not know the name of the PT and told him what had happened based upon what the patient had stated. His colleague assured me that that likely was not what happened as that is not how they do things, and I stated to them that is why I wanted to come over and discuss it, but he stated he would look into it and try to read the note for further determination of what actually happened. PHYSICAL EXAMINATION: Awake, alert, appears in no acute distress and does not appear to be overly sedated. ASSESSMENT: The patient is status post discogram at L4-L5 and L5-S1 with grade V tears with significant axial low back pain. PLAN: The patient overall, after the epidural steroid injection was done last evening transforaminally at L5-S1, seems to be doing better, was able to get her off of all IV narcotics today. She is taking a 50 mcg Duragesic patch and will take one-half to one 10/325 mg strength oxycodone for breakthrough pain every 4 to 6 hours p.r.n. pain. I requested that the nurse get patient up and walk around, and as long as she is walking around okay she is free to go home. The patient can follow up with Dr. Fox if she gets to a point where her pain is not being well controlled. TAMI:[email or web address] Job ID: [id number] Doc ID: [id number] Declan Ness DO
[2018-12-06] MEDS ORDERED: LIDOCAINE PATCH TOPICAL SCH (22:00)
== END 2018-12-06 19:16 | disposition home or self-care (01) ==
LOC: ED 17:37 → MEDSUR 17:37
PROVIDERS: ADMIT Internal Medicine; ATTEND Internal Medicine